=== PATIENT | male | born 1990 | race Hispanic/Latino ===

== ENCOUNTER 2021-10-23 15:42 | Emergency (ER) | payer OTHER ==
[~2021-10-23] VITALS: Ht 175.3 cm; Wt 77.1 kg
[2021-10-23 15:44] VITALS: BP 140/83
[2021-10-23 16:22] LABS: BASOPHILS % (AUTO) 0.3 % (0.0-5.0); EOSINOPHILS % (AUTO) 1.8 % (0.0-8.0); HEMATOCRIT 44.4 % (42-54); LYMPHOCYTES % (AUTO) 5.4 % (21.0-51.0); MEAN CORPUSCULAR HEMOGLOBIN 29.8 pg (27.0-33.0); MEAN CORPUSCULAR HGB CONC 34.5 g/dL (32.0-36.0); MEAN CORPUSCULAR VOLUME 86.4 fL (79-99); MONOCYTES % (AUTO) 6.1 % (3.0-13.0); NEUTROPHILS % (AUTO) 86.2 % (40.0-77.0); PLATELET COUNT (AUTO) 228 K/uL (130-400); RED BLOOD CELL COUNT(AUTO) 5.14 MIL/uL (4.50-6.20); WHITE BLOOD COUNT (AUTO) 9.6 K/uL (4.8-10.8)
[2021-10-23] MEDS ORDERED: ONDANSETRON 4MG INJ ONE (16:25)
[2021-10-23 16:29] LABS: APPEARANCE,URINE CLEAR (CLEAR); BILIRUBIN,URINE NEGATIVE (NEGATIVE); COLOR,URINE YELLOW (YELLOW); GLUCOSE, URINE (UA) NEGATIVE (NEGATIVE); KETONES,URINE NEGATIVE (NEGATIVE); LEUKOCYTE ESTERASE ,URINE NEGATIVE (NEGATIVE); NITRATE,URINE NEGATIVE (NEGATIVE); OCCULT BLOOD,URINE NEGATIVE (NEGATIVE); PH,URINE 7.5 (5.0-8.0); PROTEIN,URINE NEGATIVE (NEGATIVE); UROBILINOGEN,URINE 0.2 mg/dL (0.2-1.0)
[2021-10-23 16:30] LABS: POTASSIUM 3.8 mmol/L (3.5-5.1)
[2021-10-23] MEDS ORDERED: ONDANSETRON 4MG INJ IVP ONE (16:30)
[2021-10-23 16:35] LABS: ALBUMIN 4.8 g/dL (3.5-5.0); TOTAL PROTEIN, SERUM 7.9 g/dL (6.0-8.3)
[2021-10-23] MEDS ORDERED: ONDA4TAB10 PO (17:19)
== END 2021-10-23 17:27 | disposition home or self-care (01) ==
LOC: EDH 15:42
DX: R11.2 Nausea with vomiting, unspecified (principal); R10.13 Epigastric pain
CPT/HCPCS: 99283; 96374; 80053; 83690; 85025; 81003; 36415; J2405